=== PATIENT | female | born 1930 | race Hispanic/Latino ===

== ENCOUNTER 2017-01-02 13:54 | Inpatient (IN) | payer MEDICARE ==
[2017-01-02] MEDS ORDERED: MILK OF MAGNESIA PO PRN (14:07)
[2017-01-02] MEDS ORDERED: TYLENOL PO PRN (14:07)
[2017-01-02] MEDS ORDERED: ZOFRAN IV PRN (14:07)
[2017-01-02] MEDS ORDERED: DULCOLAX PR PRN (14:07)
--- NOTE | 2017-01-02 16:31 | History and Physical Report ---
History of Present Illness Date of examination: 01/02/17 Date of admission: 01/02/17 16:22 History of present illness: Obtained from the office Medications and Allergies Allergies Allergy/AdvReac Type Severity Reaction Status Date / Time enalapril AdvReac Swelling Verified 01/02/17 14:13 metformin AdvReac HYPOKALEMIA Verified 01/02/17 14:14 sulfur dioxide AdvReac HIVES AND Verified 01/02/17 14:15 RASH Active Meds: Active Medications Acetaminophen (Tylenol) 650 mg PO Q4H PRN PRN Reason: Pain MILD(1-3)/Fever >100.5/NEFF Bisacodyl (Dulcolax) 10 mg PA QDAY PRN PRN Reason: Constipation unrelieved by MOM Enoxaparin Sodium (Lovenox) 40 mg SUB-Q QDAY BRITTANY Magnesium Hydroxide (Milk Of Magnesia) 30 ml PO Q4H PRN PRN Reason: Constipation Ondansetron HCl (Zofran) 4 mg IV Q8H PRN PRN Reason: N/V unrelieved by Reglan Assessment and Plan Abnormal MPI Acute on chronic renal failure Diabetes mellitus Hypertension COPD Plan: Check a CBC and BMP Consult nephrology. Admit overnight for IV hydration prior to cardiac cath.
[2017-01-02] MEDS ORDERED: D50W (25GM) Syringe IV PRN (16:50)
[2017-01-02 18:16] LABS: BUN/Creatinine Ratio 16.66; Basophils % (Auto) 0.9 % (0.0-1.8); Chloride 98.9 mmol/L (98-107); Eosinophils % (Auto) 3.2 % (0.0-4.3); Hematocrit 31.8 % (30.3-42.9); Hemoglobin 10.5 gm/dl (10.1-14.3); Mean Corpuscular HGB Conc 33 % (30-34); Mean Corpuscular Hemoglobin 30 pg (28-32); Mean Corpuscular Volume 90 fl (79-97); Platelet Count 319 K/mm3 (140-440); Potassium 4.8 mmol/L (3.6-5.0); Red Blood Count 3.54 M/mm3 (3.65-5.03); Red Cell Distribution Width 15.6 % (13.2-15.2); White Blood Count 8.9 K/mm3 (4.5-11.0)
[2017-01-02 18:26] LABS: INR 0.93 (0.87-1.13)
[2017-01-02] MEDS: NACL 0.9% 1000 ML 1,000 ML IV SCH (21:24)
[2017-01-02] MEDS: SODIUM BICARBONATE PO SCH (21:25)
[2017-01-03 05:35] LABS: Hematocrit 29.4 % (30.3-42.9); Hemoglobin 9.5 gm/dl (10.1-14.3); Mean Corpuscular HGB Conc 32 % (30-34); Mean Corpuscular Hemoglobin 29 pg (28-32); Mean Corpuscular Volume 91 fl (79-97); Platelet Count 309 K/mm3 (140-440); Red Blood Count 3.24 M/mm3 (3.65-5.03); Red Cell Distribution Width 15.2 % (13.2-15.2); White Blood Count 8.6 K/mm3 (4.5-11.0)
[2017-01-03 05:46] LABS: INR 1.02 (0.87-1.13)
[2017-01-03 05:47] LABS: Partial Thromboplastin Time 24.7 Sec. (24.2-36.6)
[2017-01-03 05:53] LABS: Chloride 106.1 mmol/L (98-107); Potassium 4.6 mmol/L (3.6-5.0)
[2017-01-03 05:54] LABS: BUN/Creatinine Ratio 16.08; Calcium 8.8 mg/dL (8.4-10.2)
[2017-01-03] MEDS: SYNTHROID PO SCH (06:03)
[2017-01-03] MEDS ORDERED: HEPARIN/NS 5000 UNIT/500ML(CATH LAB) 0 ML IR ONE (08:10)
[2017-01-03] MEDS ORDERED: HEPARIN 10,000 UNITS/10 ML ONE (08:11)
[2017-01-03] MEDS ORDERED: CALAN ONE (08:11)
[2017-01-03] MEDS ORDERED: XYLOCAINE 2% INFILTRATI ONE (08:11)
[2017-01-03] MEDS ORDERED: NITROGLYCERIN SYRINGE 0 ML ONE (08:11)
[2017-01-03] MEDS ORDERED: LOVENOX SUB-Q SCH (10:00)
[2017-01-03] MEDS ORDERED: NON-FORMULARY (Liothyronine Sodium [Cytomel] 5 MCG) PO SCH (10:00)
[2017-01-03] MEDS: LOVENOX SUB-Q SCH (10:03)
[2017-01-03] MEDS: BABY ASPIRIN PO SCH (10:03)
[2017-01-03] MEDS: SODIUM BICARBONATE PO SCH ×2 (10:04→23:46)
[2017-01-03] MEDS: ZEMPLAR PO SCH (10:04)
[2017-01-03] MEDS: ZYLOPRIM PO SCH (10:04)
[2017-01-03] MEDS: NORVASC PO SCH (10:14)
[2017-01-03] MEDS: TOPROL XL PO SCH (10:14)
[2017-01-03] MEDS: IMDUR PO SCH (10:14)
--- NOTE | 2017-01-03 12:17 | Progress Note ---
Assessment and Plan Abnormal MPI -admitted for IV hydration prior to cath. Chronic renal failure Diabetes mellitus Hypertension Hx of Pulmonary fibrosis Plan: Daily labs. Continue IV hydration. Consult nephrology for CKD. Patient follows with Dr Rosales as an outpatient. Subjective Date of service: 01/03/17 Interval history: Patient is resting in bed comfortably. Cardiac cath cancelled due to creatinine of 2.3 today. Objective Vital Signs Temp Pulse Pulse Resp BP Pulse Ox 01/03/17 07:00 98.6 F 82 18 125/68 98 01/03/17 04:59 78 20 152/75 98 01/02/17 22:00 85 18 01/02/17 20:14 98.1 F 88 20 162/75 01/02/17 20:11 83 - Physical Examination General: No Apparent Distress HEENT: Positive: PERRL Neck: Positive: trachea midline Cardiac: Positive: Reg Rate and Rhythm Lungs: Positive: Wheezes Neuro: Positive: Grossly Intact Extremities: Absent: edema - Labs and Meds Coagulation 01/02/17 01/03/17 Range/Units 17:44 04:51 PT 12.4 13.3 (12.2-14.9) Sec. INR 0.93 1.02 (0.87-1.13) APTT 24.7 (24.2-36.6) Sec. CBC 01/02/17 01/03/17 Range/Units 17:44 04:51 WBC 8.9 8.6 (4.5-11.0) K/mm3 RBC 3.54 L 3.24 L (3.65-5.03) M/mm3 Hgb 10.5 9.5 L (10.1-14.3) gm/dl Hct 31.8 29.4 L (30.3-42.9) % Plt Count 319 309 (140-440) K/mm3 Lymph # 2.6 (1.2-5.4) K/mm3 Cass # 1.1 H (0.0-0.8) K/mm3 Eos # 0.3 (0.0-0.4) K/mm3 Baso # 0.1 (0.0-0.1) K/mm3 Comprehensive Metabolic Panel 01/02/17 01/03/17 Range/Units 17:44 04:51 Sodium 137 142 (137-145) mmol/L Potassium 4.8 4.6 (3.6-5.0) mmol/L Chloride 98.9 106.1 (98-107) mmol/L Carbon Dioxide 20 L 19 L (22-30) mmol/L BUN 40 H 37 H (7-17) mg/dL Creatinine 2.4 H 2.3 H (0.7-1.2) mg/dL Glucose 185 H 142 H (65-100) mg/dL Calcium 9.0 8.8 (8.4-10.2) mg/dL
--- NOTE | 2017-01-03 13:53 | Consultation ---
History of Present Illness - Reason for Consult Consult date: 01/03/17 chronic renal failure - History of Present Illness Mrs. Laws is an 86 yo with stage IV CKD, closely followed by Dr. Rosales, who reports being in usual state of health until stress test on Dec 24. She reports during stress test, she developed chest pain and sensation that her breath was being "cut off". She reports that symptoms continued, and on Dec 25 , she was called to return office re: test results. Mrs. Laws states that a LHC was scheduled for the following day at [facility]. However, procedure was cancelled due to renal disease. Mrs. Laws states that symptoms have continued. She reports chest pain and dyspnea with minimal exertion. She denies edema, diaphoresis, orthopnea. She reports nausea but denies vomiting. Of note, patient has a SCOTTY AVF placed in preparation for dialysis. Past History Past Medical History: cancer (hx of breast cancer), diabetes, hypertension, renal failure (stage IV CKD), other (pulmonary fibrosis) Past Surgical History: cholecystectomy, mastectomy (left breast), Other (LFA AVF creation (Dr Oakes) ) Social history: denies: smoking Family history: no significant family history Medications and Allergies Allergies Allergy/AdvReac Type Severity Reaction Status Date / Time enalapril AdvReac Swelling Verified 01/02/17 14:13 metformin AdvReac HYPOKALEMIA Verified 01/02/17 14:14 sulfur dioxide AdvReac HIVES AND Verified 01/02/17 14:15 RASH Home Medications Medication Instructions Recorded Confirmed Last Taken Type ALBUTEROL Inhaler [Proair] 2 puff IH QID PRN 01/02/17 01/02/17 Unknown History Allopurinol [Zyloprim] 100 mg PO QDAY 01/02/17 01/02/17 Unknown History Aspirin [Aspirin BABY CHEW TAB] 81 mg PO QDAY 01/02/17 01/02/17 Unknown History ISOSORBIDE MONOnitrate [Imdur ER] 30 mg PO DAILY 01/02/17 01/02/17 Unknown History Icosapent Ethyl [Vascepa] 1 gm PO BID 01/02/17 01/02/17 Unknown History Insulin Detemir [Levemir] 100 unit SQ UNK 01/02/17 01/02/17 Unknown History Levothyroxine [Synthroid] 88 mcg PO QAM 01/02/17 01/02/17 Unknown History Liothyronine Sodium [Cytomel] 5 mcg PO QDAY 01/02/17 01/02/17 Unknown History Metoprolol Xl [Metoprolol 25 mg PO QDAY 01/02/17 01/02/17 Unknown History SUCCINATE ER TAB] Paricalcitol 1 mcg PO QDAY 01/02/17 01/02/17 Unknown History Sodium Bicarbonate 650 mg PO BID 01/02/17 01/02/17 Unknown History amLODIPine [Norvasc] 5 mg PO DAILY 01/02/17 01/02/17 Unknown History cloNIDine [Catapres] 0.1 mg PO QDAY PRN 01/02/17 01/02/17 Unknown History Active Meds: Active Medications Acetaminophen (Tylenol) 650 mg PO Q4H PRN PRN Reason: Pain MILD(1-3)/Fever >100.5/NEFF Allopurinol (Zyloprim) 100 mg PO QDAY COUNT INCLUDES THE [facility] Last Admin: 01/03/17 10:04 Dose: 100 mg Amlodipine Besylate (Norvasc) 5 mg PO DAILY COUNT INCLUDES THE [facility] Aspirin (Baby Aspirin) 81 mg PO QDAY COUNT INCLUDES THE [facility] Last Admin: 01/03/17 10:03 Dose: 81 mg Atorvastatin Calcium (Lipitor) 40 mg PO QHS COUNT INCLUDES THE [facility] Last Admin: 01/02/17 21:25 Dose: 40 mg Bisacodyl (Dulcolax) 10 mg NV QDAY PRN PRN Reason: Constipation unrelieved by MOM Dextrose (D50w (25gm)) 50 ml IV PRN PRN PRN Reason: Hypoglycemia Enoxaparin Sodium (Lovenox) 30 mg SUB-Q QDAY COUNT INCLUDES THE [facility] Last Admin: 01/03/17 10:03 Dose: 30 mg Sodium Chloride (Nacl 0.9% 1000 Ml) 1,000 mls @ 100 mls/hr IV DIRECT COUNT INCLUDES THE [facility] Last Admin: 01/02/17 21:24 Dose: 100 mls/hr Insulin Human Regular (Novolin R) 0 units SUB-Q ACHS COUNT INCLUDES THE [facility] PRN Reason: Protocol Last Admin: 01/03/17 10:02 Dose: Not Given Isosorbide Mononitrate (Imdur) 30 mg PO DAILY COUNT INCLUDES THE [facility] Levothyroxine Sodium (Synthroid) 88 mcg PO DAILY@0600 COUNT INCLUDES THE [facility] Last Admin: 01/03/17 06:03 Dose: 88 mcg Magnesium Hydroxide (Milk Of Magnesia) 30 ml PO Q4H PRN PRN Reason: Constipation Metoprolol Succinate (Toprol Xl) 25 mg PO QDAY COUNT INCLUDES THE [facility] Miscellaneous Medication (Liothyronine Sodium [Cytomel]) 5 mcg PO QDAY COUNT INCLUDES THE [facility] Ondansetron HCl (Zofran) 4 mg IV Q8H PRN PRN Reason: N/V unrelieved by Reglan Paricalcitol (Zemplar) 1 mcg PO QDAY COUNT INCLUDES THE [facility] Last Admin: 01/03/17 10:04 Dose: 1 mcg Sodium Bicarbonate (Sodium Bicarbonate) 650 mg PO BID COUNT INCLUDES THE [facility] Last Admin: 01/03/17 10:04 Dose: 650 mg Review of Systems Constitutional: no fever, no chills, no sweats Cardiovascular: chest pain, shortness of breath, dyspnea on exertion, no leg edema Respiratory: shortness of breath, dyspnea on exertion, no cough Gastrointestinal: nausea, no abdominal pain, no vomiting, no diarrhea, no constipation Musculoskeletal: no myalgias Integumentary: no rash, no pruritis Exam - Vital Signs Vital signs: Vital Signs Pulse 83 01/02/17 20:11 - General Appearance General appearance: well-developed, well-nourished EENT: ATNC Respiratory: Other (faint inspiratory crackles) Heart: regular, S1S2 Gastrointestinal: Present: normal Integumentary: no rash Neurologic: alert and oriented x3 Musculoskeletal: Present: other (no edema; SCOTTY AVF +bruit) Psychiatric: mood/affect appropriate, cooperative Results - Lab Results 01/03/17 04:51 01/03/17 04:51 Most recent lab results Calcium 8.8 mg/dL (8.4-10.2) 01/03/17 04:51 Assessment and Plan Impression: * 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 Patient voices understanding * Continue IVF for hydration - IVF started this am * Continue antiHTN medications * Dose medications for renal function * Cont po bicarbonate
[2017-01-03] MEDS: NACL 0.9% 1000 ML 1,000 ML IV SCH (23:00)
[2017-01-04] MEDS: SYNTHROID PO SCH (05:35)
[2017-01-04 06:15] LABS: Calcium 9.1 mg/dL (8.4-10.2); Chloride 107.1 mmol/L (98-107); Potassium 4.7 mmol/L (3.6-5.0)
[2017-01-04] MEDS: NACL 0.9% 1000 ML 1,000 ML IV SCH (10:25)
[2017-01-04] MEDS: ZEMPLAR PO SCH (10:26)
[2017-01-04] MEDS: SODIUM BICARBONATE PO SCH ×2 (10:26→22:22)
[2017-01-04] MEDS: ZYLOPRIM PO SCH (10:26)
[2017-01-04] MEDS: IMDUR PO SCH (10:26)
[2017-01-04] MEDS: BABY ASPIRIN PO SCH (10:26)
[2017-01-04] MEDS: LOVENOX SUB-Q SCH (10:27)
[2017-01-04] MEDS: TOPROL XL PO SCH (10:27)
[2017-01-04] MEDS: NORVASC PO SCH (10:27)
--- NOTE | 2017-01-04 12:38 | Progress Note ---
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 Patient voices understanding Subjective Date of service: 01/04/17 Interval history: Patient has no complaints Objective - Vital Signs Vital signs: Vital Signs - 12hr 01/04/17 01/04/17 01/04/17 04:48 07:00 10:00 Temperature 97.6 F 98.6 F Pulse Rate 78 82 Respiratory 20 18 Rate Blood Pressure 128/64 162/71 O2 Sat by Pulse 94 97 97 Oximetry - General Appearance General appearance: well-developed, well-nourished EENT: ATNC Respiratory: Present: Other (dry inspiratory crackles) Cardiology: regular, S1S2 Gastrointestinal: normal, no tenderness, no distended Integumentary: no rash Neurologic: alert and oriented x3 Musculoskeletal: other (no edema) Psychiatric: cooperative - Lab 01/03/17 04:51 01/04/17 05:24 Most recent lab results Calcium 9.1 mg/dL (8.4-10.2) 01/04/17 05:24
--- NOTE | 2017-01-04 13:53 | Progress Note ---
Assessment and Plan Episodes of chest pain and Abnormal MPI -admitted for IV hydration prior to cath. Chronic renal failure Diabetes mellitus Hypertension Hx of Pulmonary fibrosis Plan: Left heart cath on friday Continue IV hydration. Subjective Date of service: 01/04/17 Interval history: No cardiac complaints. Objective Vital Signs Temp Pulse Resp BP Pulse Ox 01/04/17 12:00 98.4 F 73 18 147/63 98 01/04/17 10:00 97 01/04/17 07:00 98.6 F 82 18 162/71 97 01/04/17 04:48 97.6 F 78 20 128/64 94 01/04/17 00:15 98.2 F 72 20 141/78 96 01/03/17 22:00 83 20 01/03/17 20:36 97.8 F 87 18 152/69 96 01/03/17 16:30 98.0 F 94 H 20 194/91 95 - Physical Examination General: No Apparent Distress HEENT: Positive: PERRL Neck: Positive: trachea midline Cardiac: Positive: Reg Rate and Rhythm Lungs: Positive: clear to auscultation Neuro: Positive: Grossly Intact Abdomen: Positive: Soft, Active Bowel Sounds Extremities: Absent: edema - Labs and Meds Comprehensive Metabolic Panel 01/04/17 Range/Units 05:24 Sodium 139 (137-145) mmol/L Potassium 4.7 (3.6-5.0) mmol/L Chloride 107.1 H (98-107) mmol/L Carbon Dioxide 19 L (22-30) mmol/L BUN 34 H (7-17) mg/dL Creatinine 2.0 H (0.7-1.2) mg/dL Glucose 149 H (65-100) mg/dL Calcium 9.1 (8.4-10.2) mg/dL
[2017-01-04] MEDS ORDERED: NACL 0.9% 1000 ML 1,000 ML IV SCH (15:00)
[2017-01-05] MEDS ORDERED: APRESOLINE IV PRN (06:00)
[2017-01-05 07:17] LABS: BUN/Creatinine Ratio 15.23; Calcium 9.1 mg/dL (8.4-10.2); Chloride 105.7 mmol/L (98-107); Potassium 4.3 mmol/L (3.6-5.0)
[2017-01-05] MEDS: SYNTHROID PO SCH (09:05)
--- NOTE | 2017-01-05 10:05 | Progress Note ---
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 Patient voices understanding Subjective Date of service: 01/05/17 Interval history: Patient requests vegetarian diet. Objective - Vital Signs Vital signs: Vital Signs - 12hr 01/04/17 01/05/17 01/05/17 22:47 00:13 04:35 Temperature 97.8 F 98.0 F Pulse Rate 74 69 Respiratory 18 18 Rate Blood Pressure 161/71 172/72 O2 Sat by Pulse 95 96 96 Oximetry 01/05/17 01/05/17 05:04 07:00 Temperature 97.7 F Pulse Rate 71 76 Respiratory 20 Rate Blood Pressure 173/77 178/72 O2 Sat by Pulse 100 Oximetry - General Appearance General appearance: well-developed, well-nourished EENT: ATNC Respiratory: Present: Other (dry inspiratory crackles) Cardiology: regular, S1S2 Integumentary: no rash Musculoskeletal: other (no edema) Psychiatric: cooperative - Lab 01/03/17 04:51 01/05/17 05:46 Most recent lab results Calcium 9.1 mg/dL (8.4-10.2) 01/05/17 05:46
[2017-01-05] MEDS: ZEMPLAR PO SCH (10:15)
[2017-01-05] MEDS: LOVENOX SUB-Q SCH (10:15)
[2017-01-05] MEDS: IMDUR PO SCH (10:15)
[2017-01-05] MEDS: TOPROL XL PO SCH (10:15)
[2017-01-05] MEDS: NORVASC PO SCH (10:16)
[2017-01-05] MEDS: ZYLOPRIM PO SCH (10:16)
[2017-01-05] MEDS: BABY ASPIRIN PO SCH (10:16)
[2017-01-05] MEDS: SODIUM BICARBONATE PO SCH ×2 (10:16→22:09)
--- NOTE | 2017-01-05 10:16 | Progress Note ---
Assessment and Plan Episodes of chest pain and Abnormal MPI -admitted for IV hydration prior to cath. Chronic renal failure Diabetes mellitus Hypertension Hx of Pulmonary fibrosis Plan: Left heart cath on friday Continue IV hydration. Subjective Date of service: 01/05/17 Interval history: No cardiac complaints. Objective Vital Signs Temp Pulse Resp BP Pulse Ox 01/05/17 07:00 97.7 F 76 20 178/72 100 01/05/17 05:04 71 173/77 01/05/17 04:35 98.0 F 69 18 172/72 96 01/05/17 00:13 97.8 F 74 18 161/71 96 01/04/17 22:47 95 01/04/17 19:57 98.0 F 77 20 144/67 100 01/04/17 16:30 98.5 F 74 18 134/62 98 01/04/17 12:00 98.4 F 73 18 147/63 98 - Physical Examination General: No Apparent Distress HEENT: Positive: PERRL Neck: Positive: trachea midline Cardiac: Positive: Reg Rate and Rhythm Lungs: Positive: clear to auscultation. Negative: Rales Neuro: Positive: Grossly Intact Abdomen: Positive: Soft, Active Bowel Sounds Extremities: Absent: edema - Labs and Meds Comprehensive Metabolic Panel 01/05/17 Range/Units 05:46 Sodium 138 (137-145) mmol/L Potassium 4.3 (3.6-5.0) mmol/L Chloride 105.7 (98-107) mmol/L Carbon Dioxide 17 L (22-30) mmol/L BUN 32 H (7-17) mg/dL Creatinine 2.1 H (0.7-1.2) mg/dL Glucose 134 H (65-100) mg/dL Calcium 9.1 (8.4-10.2) mg/dL
[2017-01-06] MEDS: SYNTHROID PO SCH (05:34)
[2017-01-06 05:43] LABS: Hematocrit 31.2 % (30.3-42.9); Hemoglobin 10.4 gm/dl (10.1-14.3); Mean Corpuscular HGB Conc 33 % (30-34); Mean Corpuscular Hemoglobin 29 pg (28-32); Mean Corpuscular Volume 88 fl (79-97); Platelet Count 335 K/mm3 (140-440); Red Blood Count 3.55 M/mm3 (3.65-5.03); Red Cell Distribution Width 15.1 % (13.2-15.2); White Blood Count 9.4 K/mm3 (4.5-11.0)
[2017-01-06 05:50] LABS: INR 0.96 (0.87-1.13)
[2017-01-06 05:51] LABS: Partial Thromboplastin Time 27.7 Sec. (24.2-36.6)
[2017-01-06 05:57] LABS: BUN/Creatinine Ratio 16.36; Calcium 9.7 mg/dL (8.4-10.2)
[2017-01-06 05:58] LABS: Chloride 104.3 mmol/L (98-107); Potassium 4.8 mmol/L (3.6-5.0)
--- NOTE | 2017-01-06 08:02 | Progress Note ---
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 Patient voices understanding Subjective Date of service: 01/06/17 Principal diagnosis: ckd stage 4 Interval history: resting well in bed today Objective - Exam Narrative Exam: General appearance: well-developed, well-nourished EENT: ATNC Respiratory: Present: Other (dry inspiratory crackles) Cardiology: regular, S1S2 Integumentary: no rash Musculoskeletal: other (no edema) Psychiatric: cooperative - Vital Signs Vital signs: Vital Signs - 12hr 01/05/17 01/05/17 01/06/17 21:25 22:00 03:00 Temperature 98.1 F 98.1 F Pulse Rate 71 75 72 Respiratory 20 18 20 Rate Blood Pressure 156/70 152/67 O2 Sat by Pulse 97 95 Oximetry - Lab 01/06/17 05:11 01/06/17 05:11 Most recent lab results Calcium 9.7 mg/dL (8.4-10.2) 01/06/17 05:11
[2017-01-06] MEDS: ZEMPLAR PO SCH (10:29)
[2017-01-06] MEDS: ZYLOPRIM PO SCH (10:29)
[2017-01-06] MEDS: NORVASC PO SCH (10:30)
[2017-01-06] MEDS: LOVENOX SUB-Q SCH (10:30)
[2017-01-06] MEDS: TOPROL XL PO SCH (10:31)
[2017-01-06] MEDS ORDERED: HALFPRIN EC PO ONE (11:30)
[2017-01-06] MEDS: BABY ASPIRIN PO SCH (11:33)
[2017-01-06] MEDS ORDERED: VERSED ONE (11:44)
[2017-01-06] MEDS ORDERED: HEPARIN 10,000 UNITS/10 ML ONE (11:44)
[2017-01-06] MEDS ORDERED: SUBLIMAZE ONE (11:44)
[2017-01-06] MEDS ORDERED: NACL 0.9% 500 ML 500 ML ONE (11:44)
[2017-01-06] MEDS ORDERED: HEPARIN/NS 5000 UNIT/500ML(CATH LAB) 1,000 ML IR ONE (11:44)
[2017-01-06] MEDS ORDERED: XYLOCAINE 2% INFILTRATI ONE (11:44)
[2017-01-06] MEDS ORDERED: NITROGLYCERIN SYRINGE 0 ML ONE (11:45)
--- NOTE | 2017-01-06 12:34 | Event Note ---
Date: 01/06/17 Cardiac cath done, 24cc IV contrast load. Findings: Diffuse mild-moderate disease. Recommended for medical therapy. OK for cardiac discharge today.
[2017-01-06 13:48] VITALS: BP 189/79
--- NOTE | 2017-01-06 13:51 | Cardiac Catherization Report ---
CARDIAC CATHETERIZATION REASON FOR PROCEDURE: The patient is an 86-year-old woman who underwent an outpatient stress testing that was reported as abnormal. She also has a history of chronic kidney disease with a creatinine at baseline of 2.4. Prior to the cardiac catheterization, she was admitted and underwent intravenous hydration in anticipation of the procedure today. Prior to the procedure, I had an extensive discussion with the patient and went over the risks of the procedure including the high risk of contrast nephropathy given her chronic kidney disease and advanced age. She understands the risks and is eager to proceed with a diagnostic cardiac catheterization. The planned procedure is to use Visipaque with minimal contrast load for the coronary angiography. DESCRIPTION OF PROCEDURE: The patient was prepped and draped in a sterile fashion after informed consent. The right femoral artery was entered using the Seldinger technique followed by placement of a 6-Yakut sheath. Selective left and right coronary angiography was performed using #4 right and left Shanel catheters. The catheters were then removed, sheath removed, and hemostasis achieved using an Angio-Seal device. The patient was returned to the postprocedure unit in stable condition. There were no complications. FINDINGS: HEMODYNAMICS: Ascending aortic pressure was 166/55. CORONARY ANGIOGRAPHY: There was moderate to severe coronary calcification, chiefly involving the left coronary vessels. The left main coronary artery contained mild irregularities. The left anterior descending artery contained a long segment of mild to moderate disease, involving its proximal to mid portion. There was an up to 30-50% stenosis of the proximal to mid LAD. Otherwise, the LAD and diagonal branches contained diffuse mild atherosclerosis. A small ramus intermedius artery contained an irregular, proximal 50-60% stenosis. The circumflex artery and its obtuse marginal branches contained diffuse mild to moderate atherosclerosis, but no focal severe lesions. The right coronary artery was dominant. This vessel similarly contained diffuse mild atherosclerosis, with no focal severe lesions. Left ventricular angiography was not performed due to the patient's chronic kidney disease. The total contrast used for the procedure was 24 mL. CONCLUSION: 1. Diffuse mild to moderate atherosclerosis as reported above. 2. No significant focal severe coronary lesions. 3. Total contrast used for the procedure was 24 mL. RECOMMENDATION: 1. Aggressive risk factor modification and medical therapy. 2. Echocardiography for left ventricular function and valvular function assessment. JOB# [id number] CA/NTS
[2017-01-06] MEDS: IMDUR PO SCH (13:54)
--- NOTE | 2017-01-06 15:10 | Discharge Summary ---
Providers - Providers Date of Admission: 01/02/17 16:22 Date of discharge: 01/06/17 Attending physician: ARCELIA ADAMS 01/02/17 16:33 Consult to Physician [CONS] Routine Consulting Provider: LUIS VASQUEZ Reason For Exam: Renal failure, known to you Place consult to:: renal Notified:: office Phone number called:: [phone] Was contact made?: Yes If yes, spoke with:: debbie Time called:: 09:39 01/06/17 12:34 Consult to Cardiac Rehabilitation [CONS] Routine Reason For Exam: Cardiac Rehab Evaluation Primary care physician: [employer] MANAGER Hospitalization Condition: Good Hospital course: This is an 86yr old woman with multiple medical problems including chronic kidney disease. Patient had a reported abnormal stress thallium as an outpatient and was scheduled for LHC at [facility]. However, procedure was cancelled due to renal disease. She was then admitted to this hospital for IV hydration prior to anticipated cardiac catheterization. Initial labs showed a creatinine of 2.4. Patient is at a high risk of contrast induced nephropathy given age and renal disease which has been discussed at length with the patient. Patient understood the risks and agreed to proceed with a cardiac cath. A cardiac cath done, only using 24cc IV contrast load, showed diffuse mild to moderate coronary disease. Medical therapy recommended. Patient will discharge home today on medical therapy to include beta carissa, oral nitrates, aspirin and statin therapy. She will also, follow up with her primary funeral home assistant and soil fertility specialist within 1 week of discharge. Disposition: TO HOME OR SELFCARE Core Measure Documentation - Palliative Care Palliative Care/ Comfort Measures: Not Applicable - Core Measures Any of the following diagnoses?: none Exam - Constitutional Vitals: Temp Pulse Resp BP Pulse Ox 97.6 F 78 20 189/79 98 01/06/17 11:00 01/06/17 13:54 01/06/17 13:47 01/06/17 13:54 01/06/17 13:47 General appearance: Present: no acute distress - EENT Eyes: Present: PERRL ENT: hearing intact - Neck Neck: Present: normal ROM - Respiratory Respiratory effort: normal - Cardiovascular Rhythm: regular Heart Sounds: Present: S1 & S2 - Psychiatric Psychiatric: appropriate mood/affect Plan Activity: advance as tolerated Diet: low fat, low cholesterol, low salt, diabetic Follow up with: PRIMARY CARE, [Primary Care Provider] - 7 Days ARCELIA ADAMS MD [Staff Physician] - 7 Days LUIS VASQUEZ MD [Staff Physician] - 7 Days
== END 2017-01-06 23:11 | disposition home or self-care (01) | DRG 287 ==
LOC: 4A 13:54 → UNDOADMIN 13:54 → 4A 16:22
PROVIDERS: ADMIT Internal Medicine Cardiovascular Disease; ATTEND Internal Medicine Cardiovascular Disease
PROC: 4A023N7 Measurement of Cardiac Sampling and Pressure, Left Heart, Percutaneous Approach (ICD-10-PCS; principal; 2017-01-06)
PROC: B2111ZZ Fluoroscopy of Multiple Coronary Arteries using Low Osmolar Contrast (ICD-10-PCS; 2017-01-06)
DX: I25.110 Atherosclerotic heart disease of native coronary artery with unstable angina pectoris (principal); N17.9 Acute kidney failure, unspecified; E87.2 Acidosis; N18.4 Chronic kidney disease, stage 4 (severe); I12.9 Hypertensive chronic kidney disease with stage 1 through stage 4 chronic kidney disease, or unspecified chronic kidney disease; J44.9 Chronic obstructive pulmonary disease, unspecified; E11.22 Type 2 diabetes mellitus with diabetic chronic kidney disease; D63.1 Anemia in chronic kidney disease; E78.5 Hyperlipidemia, unspecified; J84.10 Pulmonary fibrosis, unspecified; Z90.49 Acquired absence of other specified parts of digestive tract; Z90.12 Acquired absence of left breast and nipple; Z88.8 Allergy status to other drugs, medicaments and biological substances
CPT/HCPCS: 36415; 80048; 82962; 85025; 85027; 85610; 85730; 93005; 93010; 93454; 94760; A9270-GY; C1760; C1894; J0360; J1644; J1650; J1815; J2250; J3010; J7030; J7040; Q9967